=== PATIENT | female | born 1955 | race Caucasian/White ===

== ENCOUNTER 2018-12-13 10:25 | Outpatient (CLI) | payer BC ==
--- NOTE | 2018-12-13 11:45 | RAD ---
Radiograph left ankle 3 views: DATE: 12/13/2018 HISTORY: 63-year-old female with "chronic gout of left foot, unspecified cause" Left ankle pain. FINDINGS: Ankle mortise is congruent. Joint space is maintained. No significant degenerative changes. Tiny exos tosis at medial cortical surface of proximal aspect of medial malleolus. Diffuse soft tissue edema. No destructive osseous lesion. No erosions identified. No soft tissue calcifications. IMPRESSION: 1. Diffuse soft tissue edema. 2. No significant osseous pathology identified.
== END 2018-12-13 10:26 | disposition home or self-care (01) ==
LOC: SCSRAD 10:25
PROVIDERS: ATTEND Nurse Practitioner Family
DX: M1A.0720 Idiopathic chronic gout, left ankle and foot, without tophus (tophi) (principal); R60.0 Localized edema